=== PATIENT | male | born 1990 | race Caucasian/White ===

== ENCOUNTER 2024-10-02 19:38 | Emergency (ER) | payer SELFPAY ==
[~2024-10-02] VITALS: Ht 167.6 cm; Wt 91.0 kg
[2024-10-02 20:05] VITALS: O2SAT 100
[2024-10-02] MEDS ORDERED: DEXT15DR5 EACHEYE (20:41)
[2024-10-02] MEDS ORDERED: ERYT1OIN6 EACHEYE (20:41)
[2024-10-02 20:45] VITALS: BP 118/67; PULSE 85; RESP 16; TEMP 36.83628; O2SAT 100
== END 2024-10-02 21:00 | disposition home or self-care (01) ==
LOC: ER 19:38
DX: S01.112A Laceration without foreign body of left eyelid and periocular area, initial encounter (principal); W26.8XXA Contact with other sharp object(s), not elsewhere classified, initial encounter; Y93.89 Activity, other specified; Y92.89 Other specified places as the place of occurrence of the external cause; Y99.8 Other external cause status
CPT/HCPCS: 99283